=== PATIENT | male | born 1975 | race American Indian/Alaskan Native ===

== ENCOUNTER 2018-06-27 09:36 | Outpatient (CLI) | payer OTHER | END 2018-06-27 09:37 | disposition home or self-care (01) | LOC: WOUND 09:36 | PROVIDERS: ATTEND Surgery | DX: L97.212 Non-pressure chronic ulcer of right calf with fat layer exposed (principal); I10 Essential (primary) hypertension | CPT/HCPCS: 11042; 11045; G0463; 99205 ==

== ENCOUNTER 2018-06-28 09:10 | Outpatient (CLI) | payer OTHER | END 2018-06-28 09:11 | disposition home or self-care (01) | LOC: LAB 09:10 | PROVIDERS: ATTEND Surgery | DX: L97.212 Non-pressure chronic ulcer of right calf with fat layer exposed (principal) | CPT/HCPCS: 36415; 82947 ==

== ENCOUNTER 2018-07-04 09:06 | Outpatient (CLI) | payer OTHER ==
[2018-07-04] MEDS ORDERED: SILVER NITRATE TP ONE (09:38)
[2018-07-04] MEDS ORDERED: XYLOCAINE TOPICAL 4% TP ONE (09:38)
== END 2018-07-04 09:07 | disposition home or self-care (01) ==
LOC: WOUND 09:06
PROVIDERS: ATTEND Surgery
DX: L97.212 Non-pressure chronic ulcer of right calf with fat layer exposed (principal); I10 Essential (primary) hypertension

== ENCOUNTER 2018-07-09 08:46 | Outpatient (CLI) | payer OTHER ==
--- NOTE | 2018-07-09 10:22 | Vascular Lab Report ---
FINAL REPORT EXAM: VL VENOUS DUPLEX LE RT HISTORY: hx of dvt TECHNIQUE: Silveira scale, color and pulsed Doppler ultrasound with color flow and spectral analysis harman luation of the right lower extremity was performed to assess for deep vein thrombosis. PRIORS: None currently available. FINDINGS: RIGHT Extremity: There is normal grayscale appearance and compressibility. Normal phasic pulsed Doppler and normal color Doppler flow are visualized. The interrogated vessels s how normal augmentation. Left Extremity: There is normal grayscale appearance and compressibility. Normal phasic pulsed Doppler and normal color Doppler flow are visualized. The interrogated vessels s how normal augmentation. IMPRESSION: No evidence for DVT.
== END 2018-07-09 08:47 | disposition home or self-care (01) ==
LOC: VAS 08:46
PROVIDERS: ATTEND Surgery
DX: E11.628 Type 2 diabetes mellitus with other skin complications (principal); L97.212 Non-pressure chronic ulcer of right calf with fat layer exposed; I10 Essential (primary) hypertension
CPT/HCPCS: 36415; 83036

== ENCOUNTER 2018-07-11 08:57 | Outpatient (CLI) | payer OTHER | END 2018-07-11 08:58 | disposition home or self-care (01) | LOC: WOUND 08:57 | PROVIDERS: ATTEND Surgery | DX: L97.212 Non-pressure chronic ulcer of right calf with fat layer exposed (principal); I10 Essential (primary) hypertension ==

== ENCOUNTER 2018-07-18 09:02 | Outpatient (CLI) | payer OTHER ==
[2018-07-18] MEDS ORDERED: XYLOCAINE TOPICAL 4% TP ONE (09:10)
== END 2018-07-18 09:03 | disposition home or self-care (01) ==
LOC: WOUND 09:02
PROVIDERS: ATTEND Surgery
DX: L97.212 Non-pressure chronic ulcer of right calf with fat layer exposed (principal); I10 Essential (primary) hypertension

== ENCOUNTER 2018-08-01 09:17 | Outpatient (CLI) | payer OTHER | END 2018-08-01 09:18 | disposition home or self-care (01) | LOC: WOUND 09:17 | PROVIDERS: ATTEND Surgery | DX: L97.212 Non-pressure chronic ulcer of right calf with fat layer exposed (principal); I10 Essential (primary) hypertension; L84 Corns and callosities ==

== ENCOUNTER 2018-08-08 09:05 | Outpatient (CLI) | payer OTHER ==
[2018-08-08] MEDS ORDERED: XYLOCAINE TOPICAL 4% TP ONE (09:14)
[2018-08-08] MEDS ORDERED: AD OINTMENT TP PRN (09:17)
== END 2018-08-08 09:06 | disposition home or self-care (01) ==
LOC: WOUND 09:05
PROVIDERS: ATTEND Surgery
DX: L97.212 Non-pressure chronic ulcer of right calf with fat layer exposed (principal); I10 Essential (primary) hypertension; L84 Corns and callosities
CPT/HCPCS: A6250

== ENCOUNTER 2018-08-15 08:55 | Outpatient (CLI) | payer OTHER ==
[2018-08-15] MEDS ORDERED: XYLOCAINE TOPICAL 4% TP ONE (09:10)
[2018-08-15] MEDS ORDERED: SILVER NITRATE TP ONE (09:30)
== END 2018-08-15 08:56 | disposition home or self-care (01) ==
LOC: WOUND 08:55
PROVIDERS: ATTEND Surgery
DX: L97.212 Non-pressure chronic ulcer of right calf with fat layer exposed (principal); I10 Essential (primary) hypertension

== ENCOUNTER 2018-08-23 08:01 | Outpatient (CLI) | payer OTHER ==
[2018-08-23] MEDS ORDERED: XYLOCAINE TOPICAL 4% TP ONE (08:32)
== END 2018-08-23 08:02 | disposition home or self-care (01) ==
LOC: WOUND 08:01
PROVIDERS: ATTEND Surgery
DX: L97.212 Non-pressure chronic ulcer of right calf with fat layer exposed (principal); I10 Essential (primary) hypertension

== ENCOUNTER 2018-08-29 08:58 | Outpatient (CLI) | payer OTHER | END 2018-08-29 08:59 | disposition home or self-care (01) | LOC: WOUND 08:58 | PROVIDERS: ATTEND Surgery | DX: L97.212 Non-pressure chronic ulcer of right calf with fat layer exposed (principal); I10 Essential (primary) hypertension ==

== ENCOUNTER 2018-09-12 08:51 | Outpatient (CLI) | payer OTHER ==
[2018-09-12] MEDS ORDERED: XYLOCAINE TOPICAL 4% TP ONE (09:30)
[2018-09-12] MEDS ORDERED: AD OINTMENT TP PRN (09:30)
== END 2018-09-12 08:52 | disposition home or self-care (01) ==
LOC: WOUND 08:51
PROVIDERS: ATTEND Surgery
DX: L97.212 Non-pressure chronic ulcer of right calf with fat layer exposed (principal); I10 Essential (primary) hypertension; L95.9 Vasculitis limited to the skin, unspecified
CPT/HCPCS: A6250

== ENCOUNTER 2018-09-19 08:43 | Outpatient (CLI) | payer OTHER ==
[2018-09-19] MEDS ORDERED: AD OINTMENT TP PRN (09:08)
[2018-09-19] MEDS ORDERED: XYLOCAINE TOPICAL 4% TP ONE (09:30)
[2018-09-19] MEDS ORDERED: SILVER NITRATE TP ONE (09:30)
== END 2018-09-19 08:44 | disposition home or self-care (01) ==
LOC: WOUND 08:43
PROVIDERS: ATTEND Surgery
DX: L97.812 Non-pressure chronic ulcer of other part of right lower leg with fat layer exposed (principal); I10 Essential (primary) hypertension; L84 Corns and callosities; L95.9 Vasculitis limited to the skin, unspecified
CPT/HCPCS: A6250

== ENCOUNTER 2018-09-26 09:15 | Outpatient (CLI) | payer OTHER ==
[2018-09-26] MEDS ORDERED: AD OINTMENT TP SCH (10:00)
[2018-09-26] MEDS ORDERED: XYLOCAINE TOPICAL 4% TP ONE (10:00)
== END 2018-09-26 09:16 | disposition home or self-care (01) ==
LOC: WOUND 09:15
PROVIDERS: ATTEND Surgery
DX: L97.212 Non-pressure chronic ulcer of right calf with fat layer exposed (principal); I10 Essential (primary) hypertension; L84 Corns and callosities; L95.9 Vasculitis limited to the skin, unspecified
CPT/HCPCS: A6250

== ENCOUNTER 2018-10-03 09:09 | Outpatient (CLI) | payer OTHER ==
[2018-10-03] MEDS ORDERED: XYLOCAINE TOPICAL 4% TP ONE (09:30)
[2018-10-03] MEDS ORDERED: AD OINTMENT TP PRN (09:30)
== END 2018-10-03 09:10 | disposition home or self-care (01) ==
LOC: WOUND 09:09
PROVIDERS: ATTEND Surgery
DX: L97.212 Non-pressure chronic ulcer of right calf with fat layer exposed (principal); I10 Essential (primary) hypertension; L84 Corns and callosities; L95.9 Vasculitis limited to the skin, unspecified

== ENCOUNTER 2018-10-10 09:18 | Outpatient (CLI) | payer OTHER ==
[2018-10-10] MEDS ORDERED: XYLOCAINE TOPICAL 4% TP ONE (10:00)
== END 2018-10-10 09:19 | disposition home or self-care (01) ==
LOC: WOUND 09:18
PROVIDERS: ATTEND Surgery
DX: L97.212 Non-pressure chronic ulcer of right calf with fat layer exposed (principal); I10 Essential (primary) hypertension; L84 Corns and callosities; L95.9 Vasculitis limited to the skin, unspecified

== ENCOUNTER 2018-10-17 08:47 | Outpatient (CLI) | payer OTHER ==
[2018-10-17] MEDS ORDERED: XYLOCAINE TOPICAL 4% TP ONE (09:30)
== END 2018-10-17 08:48 | disposition home or self-care (01) ==
LOC: WOUND 08:47
PROVIDERS: ATTEND Surgery
DX: L97.212 Non-pressure chronic ulcer of right calf with fat layer exposed (principal); I10 Essential (primary) hypertension; L84 Corns and callosities; L95.9 Vasculitis limited to the skin, unspecified

== ENCOUNTER 2018-10-24 09:01 | Outpatient (CLI) | payer OTHER ==
[2018-10-24] MEDS ORDERED: XYLOCAINE TOPICAL 2% 30ML TP ONE (09:30)
[2018-10-24] MEDS ORDERED: SILVER NITRATE TP ONE (09:30)
== END 2018-10-24 09:02 | disposition home or self-care (01) ==
LOC: WOUND 09:01
PROVIDERS: ATTEND Surgery
DX: L97.212 Non-pressure chronic ulcer of right calf with fat layer exposed (principal); I10 Essential (primary) hypertension; L84 Corns and callosities; L95.9 Vasculitis limited to the skin, unspecified

== ENCOUNTER 2018-10-31 09:01 | Outpatient (CLI) | payer OTHER ==
[2018-10-31] MEDS ORDERED: XYLOCAINE TOPICAL 4% TP ONE (09:45)
[2018-10-31] MEDS ORDERED: SILVER NITRATE TP ONE (09:45)
== END 2018-10-31 09:02 | disposition home or self-care (01) ==
LOC: WOUND 09:01
PROVIDERS: ATTEND Surgery
DX: L97.212 Non-pressure chronic ulcer of right calf with fat layer exposed (principal); I10 Essential (primary) hypertension; L84 Corns and callosities; L95.9 Vasculitis limited to the skin, unspecified

== ENCOUNTER 2018-11-07 08:44 | Outpatient (CLI) | payer OTHER | END 2018-11-07 08:45 | disposition home or self-care (01) | LOC: WOUND 08:44 | PROVIDERS: ATTEND Surgery | DX: L97.212 Non-pressure chronic ulcer of right calf with fat layer exposed (principal); I10 Essential (primary) hypertension; L84 Corns and callosities; L95.9 Vasculitis limited to the skin, unspecified ==

== ENCOUNTER 2018-11-14 09:00 | Outpatient (CLI) | payer OTHER | END 2018-11-14 09:01 | disposition home or self-care (01) | LOC: WOUND 09:00 | PROVIDERS: ATTEND Surgery | DX: L97.212 Non-pressure chronic ulcer of right calf with fat layer exposed (principal); I10 Essential (primary) hypertension ==

== ENCOUNTER 2018-11-21 09:04 | Outpatient (CLI) | payer OTHER ==
[2018-11-21] MEDS ORDERED: XYLOCAINE TOPICAL 4% TP ONE (09:30)
== END 2018-11-21 09:05 | disposition home or self-care (01) ==
LOC: WOUND 09:04
PROVIDERS: ATTEND Surgery
DX: L97.212 Non-pressure chronic ulcer of right calf with fat layer exposed (principal); I10 Essential (primary) hypertension
CPT/HCPCS: 99214; G0463

== ENCOUNTER 2018-11-28 09:27 | Outpatient (CLI) | payer OTHER | END 2018-11-28 09:28 | disposition home or self-care (01) | LOC: WOUND 09:27 | PROVIDERS: ATTEND Surgery | DX: L97.212 Non-pressure chronic ulcer of right calf with fat layer exposed (principal); I10 Essential (primary) hypertension; F17.210 Nicotine dependence, cigarettes, uncomplicated ==

== ENCOUNTER 2018-12-05 09:28 | Outpatient (CLI) | payer OTHER ==
[2018-12-05] MEDS ORDERED: AD OINTMENT TP PRN (09:44)
== END 2018-12-05 09:29 | disposition home or self-care (01) ==
LOC: WOUND 09:28
PROVIDERS: ATTEND Surgery
DX: L97.212 Non-pressure chronic ulcer of right calf with fat layer exposed (principal); I10 Essential (primary) hypertension; F17.210 Nicotine dependence, cigarettes, uncomplicated
CPT/HCPCS: 97597; A6250